=== PATIENT | male | born 1995 | race Caucasian/White ===

== ENCOUNTER → 2017-10-12 16:48 | Outpatient (CLI) | payer OTHER, BC, SELFPAY ==
--- NOTE | 2017-10-12 16:56 | RAD_ITS ---
STUDY: X-RAY CHEST REASON FOR EXAM: Male, 22 years old. Shortness of breath TECHNIQUE: Frontal and lateral views of the chest COMPARISON: 08/07/2014 FINDINGS: The lungs are clear. There are no pleural effusions. There is no pneumothorax. The heart is normal in size. The visualized osseous structures are within normal limits. RAD/Chest PA and Lateral IMPRESSION: No acute thoracic pathology. Electronically Signed: Willy Diego, at 18:27 EST Tel , Service support ,
== END ==
PROVIDERS: Visit Provider Physician Assistant
DX: R06.2 Wheezing (principal)
CPT/HCPCS: 71046

== ENCOUNTER → 2019-08-29 16:39 | Outpatient (CLI) | payer OTHER, BC, SELFPAY ==
--- NOTE | 2019-08-29 17:00 | CT_ITS ---
STUDY: CT ABDOMEN AND PELVIS WITH CONTRAST - VENOGRAM REASON FOR EXAM: Male, 23 years old. LT INGUINAL PAIN X 2 WEEKS. Possible hernia RADIATION DOSAGE (If Supplied By Facility): CTDIvol = ( 10.57 ) mGy, DLP = ( 475.28 ) mGycm TECHNIQUE: Transaxial images were obtained from the dome of the diaphragm to the symphysis pubis without oral contrast. Oral Readi-CAT was administered. Multiplanar coronal and sagittal images were reformatted. CT venogram protocol utilized, with delayed images performed during venous phase. Individualized Dose Optimization Techniques Were Used For This CT. COMPARISON: None. FINDINGS: The visualized lung bases are unremarkable. The visualized portions of the heart are within normal limits. Normal liver. Normal gallbladder and extrahepatic biliary system. Normal spleen. Normal pancreas. Normal bilateral adrenal glands. Normal right kidney. Normal left kidney. Normal visualized stomach. Normal small intestine. Normal colon. The appendix is visualized and appears normal. Normal abdominal aorta. No retroperitoneal adenopathy. IVC is patent. Normal urinary bladder. Normal abdominal wall. Normal osseous structures. CT/Abdomen/Pelvis without Cont IMPRESSION: No acute pathology of the abdomen and pelvis. Electronically Signed: Rudi Thompson DO at 0:46 EST Tel [phone], Service support ,
== END ==
PROVIDERS: PCP Family Medicine; Referring Provider Family Medicine; Visit Provider Family Medicine
DX: S39.011A Strain of muscle, fascia and tendon of abdomen, initial encounter (principal); N50.812 Left testicular pain
CPT/HCPCS: 74176